=== PATIENT | female | born 1960 | race Caucasian/White ===

== ENCOUNTER → 2017-07-19 | Outpatient (CLI) | payer OTHER | LOC: FIMAGING 15:42 | PROVIDERS: ATTEND Family Medicine | DX: Z12.31 Encounter for screening mammogram for malignant neoplasm of breast (principal) | CPT/HCPCS: G0202 ==

== ENCOUNTER 2017-10-13 11:33 | Emergency (ER) | payer OTHER ==
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
[2017-10-13] MEDS ORDERED: OXYCODONE/APAP 5/325 TAB ONE (11:49)
[2017-10-13] MEDS ORDERED: OXYCODONE/APAP 5/325 TAB PO ONE (11:52)
[2017-10-13 13:08] VITALS: BP 118/58; PULSE 58; RESP 18; TEMP 98.2; O2SAT 98
== END 2017-10-13 13:08 | disposition home or self-care (01) ==
DX: S72.112A Displaced fracture of greater trochanter of left femur, initial encounter for closed fracture (principal); S42.022A Displaced fracture of shaft of left clavicle, initial encounter for closed fracture; V17.4XXA Pedal cycle driver injured in collision with fixed or stationary object in traffic accident, initial encounter; Y92.410 Unspecified street and highway as the place of occurrence of the external cause; Y99.8 Other external cause status; Y93.55 Activity, bike riding
CPT/HCPCS: A4565

== ENCOUNTER → 2018-10-09 | Outpatient (CLI) | payer OTHER | LOC: FIMAGING 11:22 | PROVIDERS: ATTEND Family Medicine | DX: R35.1 Nocturia (principal); Z90.710 Acquired absence of both cervix and uterus; Z90.721 Acquired absence of ovaries, unilateral ==

== ENCOUNTER → 2019-01-02 | Outpatient (CLI) | payer OTHER | LOC: FIMAGING 09:58 | PROVIDERS: ATTEND Family Medicine | DX: Z12.31 Encounter for screening mammogram for malignant neoplasm of breast (principal); Z98.82 Breast implant status; M85.851 Other specified disorders of bone density and structure, right thigh ==